=== PATIENT | male | born 1995 | race Two or more races ===

== ENCOUNTER 2017-05-22 20:33 | Emergency (ER) | payer OTHER ==
[~2017-05-22] VITALS: Ht 185.4 cm; Wt 90.0 kg
[~2017-05-22 20:33] MED LIST: AMOX500T PO; PRED50TA PO
[2017-05-22 20:43] VITALS: BP 130/81; PULSE 87; RESP 16; TEMP 98.9; O2SAT 97
--- NOTE | 2017-05-22 21:16 | PD ---
HPI Chief Complaint: Musculoskeletal Complaint Time Seen by Provider: 21:06 Travel History International Travel<30 days: No Contact w/Intl Traveler<30days: No Traveled to known affect area: No History of Present Illness HPI Patient is a 21-year-old male who was at a local trampoline park today when he landed awkwardly and inverted his ankle. He states he was able to walk on it afterwards but it was painful to the point where he fell again. States symptoms started several hours prior to arrival, localized fairly well to the right ankle, was swollen but is improving with ice. Worsens when he bears weight. PFSH Past Medical History Diminished Hearing: No Tetanus Vaccination: Unknown Influenza Vaccination: No ?: Not Past Surgical History Appendectomy: Yes Social History Alcohol Use: No Tobacco Use: Yes (1/2PPD) Substance Use: No Allergies-Medications (Allergen,Severity, Reaction): Coded Allergies: No Known Allergies (Unverified Adverse Reaction, Unknown, 05/22/17) Reported Meds & Prescriptions Reported Meds & Active Scripts Active Review of Systems Except as stated in HPI: all other systems reviewed are Neg Physical Exam Narrative GENERAL: Well-nourished, well-developed patient. Appears to be in no obvious distress and quite comfortable SKIN: Focused skin assessment warm/dry. HEAD: Normocephalic. EYES: No scleral icterus. No injection or drainage. NECK: Supple, trachea midline. No JVD or lymphadenopathy. CARDIOVASCULAR: Regular rate and rhythm without murmurs, gallops, or rubs. RESPIRATORY: Breath sounds equal bilaterally. No accessory muscle use. GASTROINTESTINAL: Abdomen soft, non-tender, nondistended. MUSCULOSKELETAL: No cyanosis, or edema. There is some swelling over the lateral malleolus of the right ankle, there is some tenderness at the tip of the malleolus on the side. No foot swelling no foot pain, no tibial pain, no knee pain. Patient is able to walk on it albeit with some antalgia. 2+ bilateral pulses in all 4 extremities, pulses motor and sensory intact in all 4 extremities, compartments are soft. No laceration or wound BACK: Nontender without obvious deformity. No CVA tenderness. Data Data Last Documented VS Vital Signs Date Time Temp Pulse Resp B/P (MAP) Pulse Ox O2 Delivery O2 Flow Rate FiO2 05/22/17 22:20 05/22/17 20:43 98.9 87 16 97 Orders Orders Ankle, Complete ([id number]) (05/22/17 ) Lorenzo Bandage (05/22/17 21:44) Ed Discharge Order (05/22/17 22:18) MDM Medical Decision Making Medical Screen Exam Complete: Yes Emergency Medical Condition: Yes Differential Diagnosis Ankle strain, ankle sprain, ankle fracture. Narrative Course Last 24 hours Impressions Ankle X-Ray 05/22/17 0000 Signed Impressions: Service Date/Time: Monday, May 22, 2017 21:31 - CONCLUSION: 1. Soft tissue swelling over the lateral malleolus. No acute fracture or dislocation. Gerald Borjas MD I reviewed the x-rays and I do not see any fracture either. Patient will be placed in an Lorenzo wrap, he was able to ambulate from the emergency department. He was offered pain medicine in the emergency department as well as a prescription to go home with and he declines. Discussed rest ice compression elevation follow-up with a primary care physician and return to ED criteria Diagnosis Primary Impression: Ankle sprain Patient Instructions: General Instructions, RICE Therapy (GEN) Disposition: 01 DISCHARGE HOME Condition: Stable Roman Crockett MD May 22, 2017 21:16
--- NOTE | 2017-05-22 21:52 | RADRPT ---
EXAM DATE/TIME: 05/22/2017 21:31 [facility] COMPARISON: No previous studies available for comparison. INDICATIONS : Fall. Right ankle pain and swelling. MEDICAL HISTORY : None. SURGICAL HISTORY : None. ENCOUNTER: Initial ACUITY: 1 day PAIN SCORE: 8/10 LOCATION: Right lateral FINDINGS: Three view exam was performed of the right ankle. The bony structures are in normal alignment. No e vidence of fracture, dislocation. Soft tissue swelling present over the lateral malleolus. CONCLUSION: 1. Soft tissue swelling over the lateral malleolus. No acute fracture or dislocation. Gerald Borjas MD on May 22, 2017 at 21:49 Board Certified Radiologist. This report was verified electronically.
== END 2017-05-22 22:38 | disposition home or self-care (01) ==
LOC: PHEFT 20:33
DX: S93.401A Sprain of unspecified ligament of right ankle, initial encounter (principal); X50.9XXA Other and unspecified overexertion or strenuous movements or postures, initial encounter; Y93.44 Activity, trampolining; F17.210 Nicotine dependence, cigarettes, uncomplicated
CPT/HCPCS: 73610; 99283